=== PATIENT | female | born 1935 | race Caucasian/White ===

== ENCOUNTER 2022-10-16 10:12 | Outpatient (AMB) | payer MEDICARE, OTHER, SELFPAY ==
--- NOTE | 2022-10-16 10:12 | AM.OFFWIN_ITS ---
Intake Vital Signs 10/16/22 10:16 Weight 120 lb 4 oz BP 170/74 H Blood Pressure Location Rt brachial Position Sitting Pulse 96 Pulse Source Pulse Oximeter Temp 97.6 F Temp Source Temporal Artery Scan Pulse Oximetry (%) 100 Oxygen Delivery Method Room Air Intake Visit Reasons: [employer] Sore Throat Intake Note: Pt is here c/o sore throat for the past two days. Patient Tobacco Use Status: Never used Tobacco Allergies amlodipine Adverse Reaction (Intermediate, Verified 10/16/22 10:25) Swelling azithromycin Adverse Reaction (Intermediate, Verified 10/16/22 10:25) upset stomach celecoxib [From Celebrex] Adverse Reaction (Intermediate, Verified 10/16/22 10:25) Diarrhea losartan Adverse Reaction (Intermediate, Verified 10/16/22 10:25) Swelling metoprolol Adverse Reaction (Intermediate, Verified 10/16/22 10:25) Swelling omeprazole Adverse Reaction (Intermediate, Verified 10/16/22 10:25) upset stomach Penicillins Adverse Reaction (Intermediate, Verified 10/16/22 10:25) upset stomach Do you need a note to return to daycare/school/sports/work: No HPI HPI Comments History of Present Illness Details This is an 87-year-old female who presents to the office today for sick visit. Patient complaining of upper respiratory symptoms including nasal congestion, rhinorrhea, ear fullness, postnasal drip, and sore throat x2 days. She denies any fevers or chills. She denies any abdominal pain or nausea/vomiting/diarrhea. She denies any chest pain or shortness of breath. She denies any significant cough but feels as though she is clearing her throat due to postnasal drip. She denies any known sick contacts. She states she has been utilizing [id number] decongestants with minimal relief. [facility] Social History Patient Tobacco Use Status: Never used Tobacco Review of Systems Const All systems reviewed & are unremarkable except as noted in HPI and below Reports no additional complaints Eyes Reports no additional complaints ENT Reports no additional complaints Card Reports no additional complaints Resp Reports no additional complaints GI Reports no additional complaints Reports no additional complaints Musc Reports no additional complaints Skin/Breast Reports system reviewed and no additional complaints, except as documented Neuro Reports no additional complaints Psych Reports no additional complaints Endo Reports no additional complaints Danny/Lymph Reports no additional complaints Aller/Immun Reports no additional complaints Physical Exam Vital Signs: Last Vital Signs Temp 97.6 F 10/16/22 10:16 Pulse 96 10/16/22 10:16 BP 170/74 H 10/16/22 10:16 Pulse Ox 100 10/16/22 10:16 Oxygen Delivery Method Room Air 10/16/22 10:16 Const General: cooperative, healthy appearing, no acute distress and well developed Orientation/consciousness: patient oriented x3 HEENT Head: Yes normal to inspection Ears: hearing grossly normal bilaterally General nose exam: Normal external nose present Face and sinus: Yes normal facial exam Mouth: Normal oral and palatal mucosa present Throat: Yes posterior oropharynx normal, Yes tonsils normal and Yes uvula midline Eyes General: appearance normal, both eyes and all related structures Pupils: Equal, round and reactive pupils present EOM: EOMs intact bilaterally Resp Effort & Inspection: normal respiratory effort and no respiratory distress Auscultation: clear to auscultation bilaterally Cardio Rate: regular rate Rhythm: regular rhythm Heart sounds: no gallops, no murmurs and no rubs Peripheral pulses: Peripheral pulses 2+ throughout GI Inspection: No distended Palpation (GI): Soft to palpation and nontender Auscultation: normal bowel sounds Skin General skin exam: no rashes or lesions noted Neuro General: patient oriented x3 Cranial nerves: Yes CN's II-XII intact bilaterally and Yes Equal, round and reactive pupils present Gait exam (Neuro): Normal gait present Motor exam (neuro): 5/5 motor strength present throughout Extrem General: Yes normal to inspection, Yes full ROM and Yes no clubbing, cyanosis or edema Psych Appearance: grossly normal Mental Status: mental status grossly normal Results AMB Rapid Strep AMB Rapid Strep Negative Last Edit by Kathe Winter CMA on 10/16/22 10:58 Assessment & Plan Assessment & Plan (1) Viral URI: Code(s): J06.9 - Acute upper respiratory infection, unspecified Plan: Patient presenting with signs and symptoms most consistent with acute viral upper respiratory tract infection. Patient's vital signs are stable, her physical exam is benign, and she is overall nontoxic appearing. Recommended symptomatic management including rest, increased fluids, advil/tylenol for pain/fever, and over the counter throat lozenges/decongestants. Patient advised to follow up here or go to the emergency room for worsening/persistent symptoms. She was negative for COVID x2 at home. Patient verbalizes her understanding is she is in agreement with the plan. Orders: Orders AMB Rapid Strep Screen Today Z13.9 - Encounter for screening, unspecified Coding Level of Care Code Est Pt Level 3 (54210) Diagnoses Viral URI J06.9
[2022-10-16 10:16] VITALS: BP 170/74; PULSE 96; TEMP 36.4; O2SAT 100
== END 2022-10-16 11:07 | disposition home or self-care (01) ==
PROVIDERS: PCP Internal Medicine; Visit Provider Physician Assistant Medical
DX: J02.9 Acute pharyngitis, unspecified (principal); J06.9 Acute upper respiratory infection, unspecified
CPT/HCPCS: 87880; 99213

== ENCOUNTER 2023-01-29 10:46 | Outpatient (AMB) | payer MEDICARE, OTHER, SELFPAY ==
--- NOTE | 2023-01-29 11:07 | MHC.OFFWIV ---
Intake Vital Signs 01/29/23 11:16 Height 4 ft 10 in Weight 123 lb 4 oz BMI 25.8 BP 186/80 H Blood Pressure Location Rt brachial Position Sitting Pulse 76 Pulse Source Pulse Oximeter Pulse Oximetry (%) 98 Oxygen Delivery Method Room Air Intake Visit Reasons: EST/uti?(lobby masked) Patient Tobacco Use Status: Never used Tobacco Allergies amlodipine Adverse Reaction (Intermediate, Verified 01/29/23 11:17) Swelling azithromycin Adverse Reaction (Intermediate, Verified 01/29/23 11:17) upset stomach celecoxib [From Celebrex] Adverse Reaction (Intermediate, Verified 01/29/23 11:17) Diarrhea losartan Adverse Reaction (Intermediate, Verified 01/29/23 11:17) Swelling metoprolol Adverse Reaction (Intermediate, Verified 01/29/23 11:17) Swelling omeprazole Adverse Reaction (Intermediate, Verified 01/29/23 11:17) upset stomach Penicillins Adverse Reaction (Intermediate, Verified 01/29/23 11:17) upset stomach Medication List - Last Reconciled 01/29/23 by Janiya Gillette MD [email or web address] 10 mg PO Q6H PRN sucralfate 1 g PO DAILY PRN Do you need a note to return to daycare/school/sports/work: No HPI EST/uti?(lobby masked) HPI Details Patient is 87-year-old female came in today to be evaluated for bladder infection Patient says that 2 days ago symptoms started and now they are worse, she is having frequency and urgency She has not seen any blood in the urine Patient also have chronic back pain which she she is being treated for On examination she is tender over left CV Her urine shows positive blood and leuk esterase I am treating her with Macrobid b.i.d. for 7 days She does not have any fever this morning she fell slightly chill It is not clear if her back pain is chronic or new. There is no nausea vomiting abdominal pain, there is slight pressure suprapubic on exam. There is no chest pain shortness for breath no headache PFSH Social History Patient Tobacco Use Status: Never used Tobacco Review of Systems Const All systems reviewed & are unremarkable except as noted in HPI and below Card Reports as per HPI Resp Reports as per HPI GI Reports as per HPI Reports as per HPI Physical Exam Vital Signs: Last Vital Signs Pulse 76 01/29/23 11:16 BP 186/80 H 01/29/23 11:16 Pulse Ox 98 01/29/23 11:16 Oxygen Delivery Method Room Air 01/29/23 11:16 BMI result Body Mass Index 25.8 Const General: cooperative, comfortable and no acute distress Resp Effort & Inspection: normal respiratory effort Auscultation: clear to auscultation bilaterally Cardio Rhythm: regular rhythm Heart sounds: S1 normal heart sound present and S2 normal heart sound present GI Inspection: Yes other Palpation (GI): Soft to palpation Auscultation: normal bowel sounds Assessment & Plan Assessment & Plan (1) Acute cystitis with hematuria: Code(s): N30.01 - Acute cystitis with hematuria Plan Patient is 87-year-old female came in today to be evaluated for bladder infection Patient says that 2 days ago symptoms started and now they are worse, she is having frequency and urgency She has not seen any blood in the urine Patient also have chronic back pain which she she is being treated for On examination she is tender over left CV Her urine shows positive blood and leuk esterase I am treating her with Macrobid b.i.d. for 7 days She does not have any fever this morning she fell slightly chill It is not clear if her back pain is chronic or new. There is no nausea vomiting abdominal pain, there is slight pressure suprapubic on exam. There is no chest pain shortness for breath no headache Orders: Orders Urine Culture Today N30.01 - Acute cystitis with hematuria Medications: New nitrofurantoin monohyd/m-cryst 100 mg (Macrobid) must administer with a meal/food 100 mg PO Q12H 14 caps 0RF Coding Level of Care Code Est Pt Level 4 (11047) Diagnoses Acute cystitis with hematuria N30.01
[2023-01-29 11:16] VITALS: BP 186/80; PULSE 76; O2SAT 98; BMI 25.8
== END 2023-01-29 12:12 | disposition home or self-care (01) ==
PROVIDERS: PCP Internal Medicine; Visit Provider Internal Medicine
DX: N30.01 Acute cystitis with hematuria (principal); Z13.9 Encounter for screening, unspecified
CPT/HCPCS: 81003; 99214

== ENCOUNTER 2023-01-29 13:46 | Outpatient (REF) | payer MEDICARE, OTHER, SELFPAY | END 2023-01-29 13:47 | disposition home or self-care (01) | LOC: HO.HMGCLNP 13:46 | PROVIDERS: Visit Provider Internal Medicine | DX: N30.01 Acute cystitis with hematuria (principal) | CPT/HCPCS: 87086; 87088; 87186 ==